=== PATIENT | male | born 1990 | race Caucasian/White ===

== ENCOUNTER 2020-09-11 08:32 | Emergency (ER) | payer OTHER, BC | END 2020-09-11 09:15 | disposition home or self-care (01) | LOC: ER1 08:32 | DX: S01.01XA Laceration without foreign body of scalp, initial encounter (principal); W20.8XXA Other cause of strike by thrown, projected or falling object, initial encounter; Y92.89 Other specified places as the place of occurrence of the external cause; Y99.0 Civilian activity done for income or pay | CPT/HCPCS: 12002; 99283 ==

== ENCOUNTER → 2020-09-12 | Outpatient (CLI) | payer OTHER | LOC: KOH-I 13:18 | DX: M54.5 Low back pain (principal); M25.522 Pain in left elbow | CPT/HCPCS: 72110; 73080 ==

== ENCOUNTER 2020-09-21 13:09 | Emergency (ER) | payer BC | END 2020-09-21 13:23 | disposition home or self-care (01) | LOC: ER1 13:09 | DX: S01.01XD Laceration without foreign body of scalp, subsequent encounter (principal); W20.8XXD Other cause of strike by thrown, projected or falling object, subsequent encounter | CPT/HCPCS: 99281 ==

== ENCOUNTER 2021-04-11 13:38 | Emergency (ER) | payer BC | END 2021-04-11 15:40 | disposition home or self-care (01) | LOC: ER1 13:38 | DX: U07.1 COVID-19 (principal); Z88.6 Allergy status to analgesic agent | CPT/HCPCS: 99284 ==